=== PATIENT | male | born 1935 | race Caucasian/White ===

== ENCOUNTER 2016-07-30 11:47 | Inpatient (IN) ==
[2016-07-30] MEDS ORDERED: Aspirin 81 MG TAB.CHEW PO ONE (11:56)
[2016-07-30] MEDS ORDERED: *HR* Ticagrelor 90 MG TABLET PO ONE (11:56)
--- NOTE | 2016-07-30 12:01 | Emergency Department Note ---
START Narrative - START START: I examined this patient and my medical decision-making was reviewed with the STRETCHER OPERATOR/PA/Advanced Practice Nurse/Resident Physician. I agree with the documented findings, disposition and treatment plan as described except to the extent set forth below. ED attending note: Patient seen with emergency medicine resident Dr. Lobo. Please see a copy of his note for details of the H&P, evaluation, management and disposition of this patient. We independently had [id number] contact with the patient Briefly: A 1-year-old male presents with family for indigestion and chest discomfort since 8 AM this morning he thought it was "indigestion". No prior history of coronary artery disease or myocardial infarction. Patient was placed direct bed from the lobby into the bed and bed #6 had an emergent EKG which was read by myself as acute myocardial infarction with ST elevation of 3 mm in 23 and aVF consistent with inferior wall infarction. The resident contacted the interventional is Dr. Mayen patient is being started on study protocol will be taken to the catheter lab. We have provided 30 minutes critical care service for this patient Field Underwriter on standby.
--- NOTE | 2016-07-30 12:02 | Emergency Department Note ---
Disposition Clinical Impression: NSTEMI (non-ST elevated myocardial infarction) Disposition: Home, Self-Care Condition: Good Referrals: Alexa Ramirez MD [Primary Care Provider] - Time of Disposition: 14:10 General Adult HPI - General Stated complaint: chest pain Time Seen by Provider: 07/30/16 11:52 Source: patient Limitations: no limitations Nursing Notes Reviewed: Yes Vital Signs Reviewed: Yes - History of Present Illness HPI Narrative: Patient complaining of a chest pain radiates across his chest started 8:00 this morning. Associate with shortness of breath. No nausea no radiation to his jaw or arm. No previous history of any kind of heart problems. Is a diabetic. His take aspirin everyday. Pain Scale: 5 - Related Data Home Medications Medication Instructions Recorded Confirmed GlipiZIDE XL (24 HR) [Glucotrol XL] 12/18/15 12/18/15 Levothyroxine [Synthroid] 88 mcg PO 12/18/15 Losartan Potassium [Cozaar] 50 mg PO DAILY 12/18/15 12/18/15 Pramipexole [Mirapex] 0.25 mg PO 12/18/15 Simvastatin [Zocor] 20 mg PO 12/18/15 Aspirin Enteric Coated [Aspirin EC] 81 mg PO DAILY 07/30/16 07/30/16 Omeprazole [PriLOSEC] 20 mg PO DAILY 07/30/16 07/30/16 Oxybutynin [Ditropan] 5 mg PO BID 07/30/16 07/30/16 Allergies Allergy/AdvReac Type Severity Reaction Status Date / Time No Known Allergies Allergy Verified 12/18/15 10:46 All systems ED: reviewed and negative except as stated. Constitutional: Denies: fever, chills ENT ED: Denies: congestion Cardiovascular: Reports: chest pain (Across the center of his chest. No radiation.). Denies: palpitations, dyspnea on exertion, syncope Respiratory: Denies: cough, dyspnea Gastrointestinal: Denies: abdominal pain, nausea, vomiting, diarrhea, hematemesis, melena, hematochezia Genitourinary: Denies: urgency, dysuria, frequency, hematuria Musculoskeletal: Denies: back pain, neck pain Integumentary: Denies: rash Neurological: Denies: headache, weakness Past Medical History - Past Medical History Medical history: Reports: diabetes Psychiatric history: Reports: no psych history - Social History Smoking Status: Never smoker Smokeless Tobacco Status: No Alcohol use: Reports: none Drug use: Reports: none Physical Exam - General Limitations: no limitations General appearance: alert, in no apparent distress - Head Head exam: atraumatic, normocephalic, normal inspection - Eye Eye exam: Present: normal appearance, PERRL, EOMI. Absent: scleral icterus - ENT ENT exam: normal exam, normal oropharynx, mucous membranes moist - Neck Neck exam: Present: normal inspection, full ROM, trachea midline. Absent: lymphadenopathy - Chest Chest inspection: Present: normal inspection, symmetric chest wall rise - Respiratory Respiratory exam: Present: normal lung sounds bilaterally. Absent: respiratory distress - Cardiovascular Cardiovascular exam: Present: regular rate, normal rhythm, normal heart sounds - Abdominal Exam Abdominal exam: Present: soft, Non-Tender, normal bowel sounds - Extremities Exam Extremities exam: Present: normal inspection, full ROM, normal capillary refill. Absent: tenderness, pedal edema - Back Exam Back exam: Present: normal inspection, full ROM. Absent: tenderness, CVA tenderness (R), CVA tenderness (L) - Neurological Exam Neurological exam: Present: alert, oriented X3 - Psychiatric Psychiatric exam: Present: normal affect, normal mood - Skin Skin exam: Present: warm, dry, intact, normal color Course Course Narrative: Well-appearing male patient presents to emergency room in with a 5 hour history of chest pain. He said he developed indigestion. He states it radiates across his chest. Does not go to his jaw or his arm. Does have associated shortness of breath with no nausea or vomiting. Lung sounds are clear heart tones are normal. Abdomen is soft and nontender. He has no swelling or edema to his extremities. He is mentating appropriately. He has no history of any heart problems. He does have a history of diabetes. EKG shows a elevation in II, III , and F. This is consistent with an inferior wall SC. We have contacted the cardiac interventionalest. He will be going emergently to the Credit Department Manager. - Reevaluation(s) Reevaluation #1: Dr. Mayen reviewed the patient's EKG and requested a new EKG. There is no ST elevation on the new EKG. He states still give the Brilinita but we do not need to take him for an emergent catheter. Time: 12:15 Reevaluation #2: Patient is almost pain-free at this time. He is +[address] Mayen advises that the patient should be admitted to the floor and they will be consult it. He does have an elevated troponin but no ST elevation at this time. He does have an increased creatinine. He has a baseline increase creatinine however this is higher than normal. His troponin has never been this high. Patient is agreeable to admission. Time: 13:05 - Consultations Consultation #1: STEMI. ST elevation in 23 aVF. Otherwise, sinus rhythm. Time: 12:00 Consultation #2: Dr. Rodriguez accepted patient in stable condition. Time: 13:39 Vital Signs Temperature 97.5 F L 07/30/16 11:49 Pulse Rate 65 07/30/16 11:49 Respiratory Rate 16 07/30/16 11:49 Blood Pressure 185/95 07/30/16 11:49 O2 Sat by Pulse Oximetry 97 07/30/16 11:49 Temperature 97.5 F L 07/30/16 11:49 Pulse Rate 55 07/30/16 13:00 Respiratory Rate 16 07/30/16 13:00 Blood Pressure 155/88 07/30/16 13:00 O2 Sat by Pulse Oximetry 98 07/30/16 13:00 Oxygen Delivery Oxygen Delivery Room Air Medical Decision Making - Medical Records Medical records reviewed: Yes I reviewed the patient's medical records. - Lab Data Lab results reviewed: Yes I reviewed the patient's lab results. Result diagrams: 07/30/16 11:56 07/30/16 11:56 Lab Results 07/30/16 07/30/16 07/30/16 Range/Units 11:56 11:56 11:56 WBC 9.2 (4.3-11.1) K/mcL RBC 3.24 L (4.19-5.50) M/mcL Hgb 10.4 L (12.9-16.9) g/dL Hct 31.4 L (37.5-50.1) % MCV 96.9 (83.0-100.0) fL MCH 32.1 (28.0-33.3) pg MCHC 33.1 (31.6-35.5) g/dL RDW 12.9 (11.5-14.5) % Plt Count 252 (140-400) K/mcL MPV 9.8 (9.4-12.4) fL Immature Gran % 0.3 (0-4) % Seg Neutrophils % 55.1 % Lymphocytes % 32.0 % Monocytes % 8.3 % Eosinophils % 3.9 % Basophils % 0.4 % Neutrophils # 5.1 (1.6-8.9) K/mcL Lymphocytes # 2.9 (0.6-4.6) K/mcL Monocytes # 0.8 (0.0-1.3) K/mcL Eosinophils # 0.4 (0.0-0.6) K/mcL Basophils # 0.0 (0.0-0.2) K/mcL PT 11.3 (9.4-12.1) Seconds INR 1.0 APTT 29.2 (26.0-36.0) Seconds Sodium 140 (136-145) mEq/L Potassium 4.9 H (3.5-4.5) mEq/L Chloride 109 (98-109) mEq/L Carbon Dioxide 19 (19-29) mEq/L BUN 53 H (8-26) mg/dL Creatinine 3.63 H (0.72-1.25) mg/dL Est GFR ( Amer) 20 L (> 60) Est GFR (Non-Af Amer) 16 L (> 60) BUN/Creatinine Ratio 15 (6-26) Glucose 95 (70-99) mg/dL Calculated Osmolality 304 H (280-300) Calcium 9.0 (8.6-10.8) mg/dL Magnesium 1.9 (1.6-2.6) mg/dL Troponin I (0-0.03) ng/mL 07/30/16 Range/Units 11:56 WBC (4.3-11.1) K/mcL RBC (4.19-5.50) M/mcL Hgb (12.9-16.9) g/dL Hct (37.5-50.1) % MCV (83.0-100.0) fL MCH (28.0-33.3) pg MCHC (31.6-35.5) g/dL RDW (11.5-14.5) % Plt Count (140-400) K/mcL MPV (9.4-12.4) fL Immature Gran % (0-4) % Seg Neutrophils % % Lymphocytes % % Monocytes % % Eosinophils % % Basophils % % Neutrophils # (1.6-8.9) K/mcL Lymphocytes # (0.6-4.6) K/mcL Monocytes # (0.0-1.3) K/mcL Eosinophils # (0.0-0.6) K/mcL Basophils # (0.0-0.2) K/mcL PT (9.4-12.1) Seconds INR APTT (26.0-36.0) Seconds Sodium (136-145) mEq/L Potassium (3.5-4.5) mEq/L Chloride (98-109) mEq/L Carbon Dioxide (19-29) mEq/L BUN (8-26) mg/dL Creatinine (0.72-1.25) mg/dL Est GFR ( Amer) (> 60) Est GFR (Non-Af Amer) (> 60) BUN/Creatinine Ratio (6-26) Glucose (70-99) mg/dL Calculated Osmolality (280-300) Calcium (8.6-10.8) mg/dL Magnesium (1.6-2.6) mg/dL Troponin I 0.16 H* (0-0.03) ng/mL - Radiology Data Radiology results reviewed: Yes I reviewed the patient's radiology results. Chest X-Ray 07/30/16 11:56 IMPRESSION: 1. Stable chest x-ray with no active pulmonary disease. D/ / Crow Whitney MD / Crow Whitney MD Interpreting Provider: Crow Whitney MD - EKG Data EKG #1 EKG attestation: Yes I reviewed and interpreted this EKG. EKG results narrative: Normal sinus rhythm at a rate of 62. ST elevation noted in 23 and aVF. This is consistent with a STEMI. SC interval is 160. QRS duration is 98. QT is 392. QTC 397. This was not present on previous EKG dated 09/13/2014. EKG #2 EKG attestation: Yes I reviewed and interpreted this EKG. EKG results narrative: 12:40 Normal sinus rhythm at a rate of 54. SC interval is 138. Respiration is 90. QT is 412. QTC is 397. ST elevation or depression noted on this EKG.
[2016-07-30 12:05] LABS: Basophils % 0.4 %; Eosinophils # 0.4 K/mcL (0.0-0.6); Eosinophils % 3.9 %; Hematocrit 31.4 % (37.5-50.1); Hemoglobin 10.4 g/dL (12.9-16.9); Immature Granulocytes % 0.3 % (0-4); Lymphocytes # 2.9 K/mcL (0.6-4.6); Mean Corpuscular HGB Conc 33.1 g/dL (31.6-35.5); Mean Corpuscular Hemoglobin 32.1 pg (28.0-33.3); Mean Corpuscular Volume 96.9 fL (83.0-100.0); Mean Platelet Volume 9.8 fL (9.4-12.4); Monocytes # 0.8 K/mcL (0.0-1.3); Monocytes % 8.3 %; Neutrophils # 5.1 K/mcL (1.6-8.9); Platelet Count 252 K/mcL (140-400); Red Blood Count 3.24 M/mcL (4.19-5.50); Red Cell Distribution Width 12.9 % (11.5-14.5); Segmented Neutrophils % 55.1 %
[2016-07-30 12:10] LABS: Prothrombin Time 11.3 Seconds (9.4-12.1)
[2016-07-30 12:13] LABS: Activated Partial Thrombo Time 29.2 Seconds (26.0-36.0)
[2016-07-30] MEDS: Nitroglycerin 25 MG/250 ML INFUS..BTL IVC SCH (12:14)
[2016-07-30 12:17] LABS: Magnesium 1.9 mg/dL (1.6-2.6); Potassium 4.9 mEq/L (3.5-4.5)
[2016-07-30] MEDS ORDERED: diazePAM 5 MG TABLET PO ONE (13:54)
[2016-07-30] MEDS ORDERED: *HR* Heparin 5,000 UNIT/ML VIAL IVP PRN ×2 (14:13)
[2016-07-30] MEDS ORDERED: *HR* Heparin 5,000 UNIT/ML VIAL IVP ONE (14:13)
[2016-07-30] MEDS ORDERED: Sodium Bicarbonate 50 MEQ/50 ML VIAL IVP ONE (14:14)
[2016-07-30] MEDS ORDERED: Calcium Gluconate 1,000 MG in D5% in Water 100 ML IVPB ONE (14:15)
[2016-07-30] MEDS ORDERED: *HR* Heparin 5,000 UNIT/ML VIAL ONE (14:26)
[2016-07-30] MEDS ORDERED: Heparin 25,000 UNIT/500 ML D5W 25,000 UNIT/500 ML MLS IVC ONE (14:27)
[2016-07-30] MEDS ORDERED: Naloxone 0.4 MG/ML INJ IVP PRN (14:28)
[2016-07-30] MEDS: Heparin 25,000 UNIT/500 ML D5W 25,000 UNIT/500 ML MLS IVC SCH ×2 (14:29→16:46)
--- NOTE | 2016-07-30 14:31 | Event Note ---
Date of Encounter: 07/30/16 Time of Encounter: 14:24 Patient seen and examined withpractitioner. 81-year-old man with diabetes mellitus type 2 diagnosed 4 years ago, CKD presents to emergency room today with anginal chest pain while he was working in his barn. This is the 1st time he experiences chest pain. Chest pain al retrosternal radiating to both arms lasted for 3 hours to he arrived to emergency room. Initial electrocardiogram shows ST segment elevation in the inferior leads with ST segment in lead 3 more than lead 2 suggestive of probable RCA occlusion. He was started on nitroglycerin drip With near resolution of this chest pain. Repeat EKG showed resolution of ST segment elevation. During my interview patient stated that pain is almost gone. He rated his pain as 1-2/10. He is hemodynamically stable blood pressure 130 E. 150 systolic. Heart rate 60s. He has been given loading those of Berlinta. Aspirin 300 mg. He will be started on heparin drip. No room for beta dogn. Echocardiogram. Close monitoring. He will need an angiogram. Discussed with him the risk of contrast nephropathy. He will be started on fluids as well as mucomyst to decrease risk of contrast nephropathy. No clinical signs of heart failure. No witnessed ventricular arrhythmias. Patient is full code.
[2016-07-30] MEDS ORDERED: Dextrose Gel 15 GM PO PRN ×2 (14:43)
[2016-07-30] MEDS ORDERED: *HR* Dextrose 50 % in Water (Syg) 50 ML SYRINGE IVP PRN (14:43)
[2016-07-30] MEDS ORDERED: D5% in Water 1,000 ML IVC PRN (14:43)
--- NOTE | 2016-07-30 14:53 | Internal Med History&Physical ---
Date of Encounter: 07/30/16 Time of Encounter: 14:46 Assessment and Plan (1) NSTEMI (non-ST elevated myocardial infarction) Current visit: Yes Status: Acute Patient with crushing chest pain relieved by nitro and aspirin. Initial EKG revealed ST elevations in leads II, III and avF. Repeat EKG after resolution of chest pain showed resolution of ST elevations. Troponin 0.16. Cardiology consulted and feels this is NSTEMI, and not indicated for emergent cath. Patient given loading dose of Brilinta, 325mg aspirin Nitro drip and heparin drip started serial troponins for trend continuous groundwater monitoring technician echocardiogram ordered Cardiology consulted and possible cath tomorrow. NPO at midnight for possible cath tomorrow. (2) Acute kidney injury superimposed on chronic kidney disease Current visit: Yes Status: Acute Creatinine of 3.63 up from previous baseline of 2.56. Strong possibility patient will go to catheter lab for his NSTEMI, we will hydrate with fluids 0.9 normal saline at 100 mL per hour, as well as give Mucomyst for renal protection. Hold losartan. Avoid NSAIDs and Nephrotoxins Recheck chemistry in the morning. (3) Hyperkalemia Current visit: Yes Status: Acute Potassium of 4.9 Sodium bicarb and calcium gluconate ordered recheck chemistry tomorrow. (4) Type 2 diabetes mellitus Current visit: Yes Status: Acute Check Hgb A1c Hold glipizide check blood sugars ACHS sliding scale correction dose ACHS hypoglycemic protocol. Qualifiers: Diabetes mellitus complication status: without complication Diabetes mellitus intermediate designer insulin use: without intermediate designer use Qualified Code(s): E11.9 - Type 2 diabetes mellitus without complications (5) Hypertension Current visit: Yes Status: Acute Hold Losartan due to MARIA ANTONIA. Patient on Nitro drip for his NSTEMI. Qualifiers: Hypertension type: essential hypertension Qualified Code(s): I10 - Essential (primary) hypertension (6) DVT prophylaxis Current visit: Yes Status: Acute Anti-embolic stockings Heparin drip. Internal Medicine - H&P: HPI Chief complaint: chest pain Admitted From: Emergency Dept Plans for Post Hospital Care: Home History of present illness: Mr. Harkins is a 81 year old male with hypertension, hyperlipidemia, CAD stage IV, type 2 diabetes, acid reflux who presented to the emergency department today with complaints of chest pain. Patient reports he had an onset of chest pain this morning while he was working in his barn at approximately 8 AM. He describes the pain as crushing, severe, constant, radiating down bilateral arms. He denies any lightheadedness, headache, palpitations, shortness of breath, sweating he denies any nausea, vomiting, diarrhea. Evaluation in the emergency department included an EKG which demonstrated ST elevations in leads II, III, and aVF, cardiology was consulted, patient was given aspirin, nitroglycerin, and chest pain nearly resolved. Repeat EKG showed resolution of ST elevations. Cardiology did not feel emergent catheter was indicated. Evaluation also showed MARIA ANTONIA on his CAD is elevated creatinine of 3.63 from previous value of 2.56. He is mildly hyperkalemic with potassium of 4.9. On exam, patient was alert and oriented, in no acute distress, reporting that his pain was resolved. Had regular rate and rhythm, lungs are clear bilaterally to auscultation, no lower extremity edema. Past Med Surg Social Fam HX - Past Medical History Medical history: diabetes, GERD, hyperlipidemia, hypertension, renal disease, thyroid disease Psychiatric history: no psych history - Past Surgical History Surgical History: no surgical history - Social History Smoking Status: Former smoker Smokeless Tobacco Status: No Alcohol use: none Drug use: none - Family History Mother Living Status: Age at : 86 Hx Family Endocrine Disorder: Yes (diabetes) Father Living Status: Age at : 92 Internal Medicine - H&P: Meds GlipiZIDE XL (24 HR) [Glucotrol XL] 5 mg PO QAM 12/18/15 [History] Levothyroxine [Synthroid] 88 mcg PO QAM 12/18/15 [History] Losartan Potassium [Cozaar] 50 mg PO DAILY 12/18/15 [History] Pramipexole [Mirapex] 0.25 mg PO HS 12/18/15 [History] Simvastatin [Zocor] 20 mg PO HS 12/18/15 [History] Aspirin Enteric Coated [Aspirin EC] 81 mg PO DAILY 07/30/16 [History] Omeprazole [PriLOSEC] 20 mg PO DAILY 07/30/16 [History] Oxybutynin [Ditropan] 5 mg PO BID 07/30/16 [History] Allergies No Known Allergies Allergy (Verified 12/18/15 10:46) All Systems PM: A 10-system review of systems was performed and is negative for pertinent findings except as documented above in the HPI. - Constitutional Constitutional: no chills, no fever(s), no night sweats - EENT Eyes: no change in vision, no discharge, no pain, no photophobia Ears: no ear discharge, no ear pain, no tinnitus Nose, mouth and throat: no dysphagia, no nasal discharge, no neck pain, no sore throat - Cardiovascular Cardiovascular ROS IM: chest pain, no diaphoresis, no dyspnea, no lightheadedness, no palpitations, no syncope - Respiratory Respiratory: no cough, no dyspnea, no wheezing, no excessive phlegm production - Gastrointestinal Gastrointestinal: no abdominal pain, no diarrhea, no hematemesis, no hematochezia, no melena, no nausea, no vomiting - Musculoskeletal Musculoskeletal ROS IM: no numbness, no tingling - Integumentary Integumentary IM: no rash, no unusual bruising - Neurological Neurological ROS: no confusion, no convulsions, no focal weakness, no numbness, no tingling, no tremor(s) - Hematologic/Lymphatic Hematologic/Lymphatic: no easy bruising - Constitutional Vitals: Temp Pulse Resp BP Pulse Ox 97.5 F L 54 16 171/83 98 07/30/16 11:49 07/30/16 14:30 07/30/16 14:30 07/30/16 14:30 07/30/16 14:30 General appearance: Present: A&O X 3, pleasant, no acute distress - Head Head exam: Present: atraumatic, normocephalic - Eye Eye exam: Present: PERRL, conjuntiva pink, sclera anicteric Pupils: Present: PERRL - Neck Neck exam general surgery: Present: supple, trachea midline. Absent: lymphadenopathy - Respiratory Respiratory exam: Present: CTAB. Absent: accessory muscle use, rales, rhonchi, wheezes - Cardiovascular Cardiovascular exam: Present: RRR, +S1, +S2. Absent: diastolic murmur, gallop, rubs, systolic murmur - GI/Abdominal GI/Abdominal exam: Present: normal bowel sounds, soft, no peritoneal signs. Absent: distended, tenderness - Extremities Exam Extremities exam: Present: warm, radial pulses palpable and symetrical. Absent : calf tenderness, cyanotic, pedal edema - Neurological Exam Neurological exam: Present: CN II-XII intact, oriented X3, no focal deficits. Absent: facial droop, speech deficit - Skin Skin exam: Present: dry, intact Internal Med - H&P Results - Labs CBC & Chem 7: 07/30/16 11:56 07/30/16 11:56 Labs: All Lab Results (24 Hours) 07/30/16 07/30/16 07/30/16 Range/Units 11:56 11:56 11:56 WBC 9.2 (4.3-11.1) K/mcL RBC 3.24 L (4.19-5.50) M/mcL Hgb 10.4 L (12.9-16.9) g/dL Hct 31.4 L (37.5-50.1) % MCV 96.9 (83.0-100.0) fL MCH 32.1 (28.0-33.3) pg MCHC 33.1 (31.6-35.5) g/dL RDW 12.9 (11.5-14.5) % Plt Count 252 (140-400) K/mcL MPV 9.8 (9.4-12.4) fL Immature Gran % 0.3 (0-4) % Seg Neutrophils % 55.1 % Lymphocytes % 32.0 % Monocytes % 8.3 % Eosinophils % 3.9 % Basophils % 0.4 % Neutrophils # 5.1 (1.6-8.9) K/mcL Lymphocytes # 2.9 (0.6-4.6) K/mcL Monocytes # 0.8 (0.0-1.3) K/mcL Eosinophils # 0.4 (0.0-0.6) K/mcL Basophils # 0.0 (0.0-0.2) K/mcL PT 11.3 (9.4-12.1) Seconds INR 1.0 APTT 29.2 (26.0-36.0) Seconds Sodium 140 (136-145) mEq/L Potassium 4.9 H (3.5-4.5) mEq/L Chloride 109 (98-109) mEq/L Carbon Dioxide 19 (19-29) mEq/L BUN 53 H (8-26) mg/dL Creatinine 3.63 H (0.72-1.25) mg/dL Est GFR ( Amer) 20 L (> 60) Est GFR (Non-Af Amer) 16 L (> 60) BUN/Creatinine Ratio 15 (6-26) Glucose 95 (70-99) mg/dL Calculated Osmolality 304 H (280-300) Calcium 9.0 (8.6-10.8) mg/dL Magnesium 1.9 (1.6-2.6) mg/dL Troponin I (0-0.03) ng/mL 07/30/16 Range/Units 11:56 WBC (4.3-11.1) K/mcL RBC (4.19-5.50) M/mcL Hgb (12.9-16.9) g/dL Hct (37.5-50.1) % MCV (83.0-100.0) fL MCH (28.0-33.3) pg MCHC (31.6-35.5) g/dL RDW (11.5-14.5) % Plt Count (140-400) K/mcL MPV (9.4-12.4) fL Immature Gran % (0-4) % Seg Neutrophils % % Lymphocytes % % Monocytes % % Eosinophils % % Basophils % % Neutrophils # (1.6-8.9) K/mcL Lymphocytes # (0.6-4.6) K/mcL Monocytes # (0.0-1.3) K/mcL Eosinophils # (0.0-0.6) K/mcL Basophils # (0.0-0.2) K/mcL PT (9.4-12.1) Seconds INR APTT (26.0-36.0) Seconds Sodium (136-145) mEq/L Potassium (3.5-4.5) mEq/L Chloride (98-109) mEq/L Carbon Dioxide (19-29) mEq/L BUN (8-26) mg/dL Creatinine (0.72-1.25) mg/dL Est GFR ( Amer) (> 60) Est GFR (Non-Af Amer) (> 60) BUN/Creatinine Ratio (6-26) Glucose (70-99) mg/dL Calculated Osmolality (280-300) Calcium (8.6-10.8) mg/dL Magnesium (1.6-2.6) mg/dL Troponin I 0.16 H* (0-0.03) ng/mL - Diagnostic Studies Chest x-ray Additional comments: Chest X-Ray 07/30/16 11:56 IMPRESSION: 1. Stable chest x-ray with no active pulmonary disease. D/ / Crow Whitney MD / Crow Whitney MD Interpreting Provider: Crow Whitney MD
--- NOTE | 2016-07-30 15:29 | Cardiology Consult Note ---
Date of Encounter: 07/30/16 Time of Encounter: 15:26 Assessment and Plan (1) NSTEMI (non-ST elevated myocardial infarction) Current Visit: Yes Status: Acute Patient with crushing chest pain relieved by nitro and aspirin. Initial EKG had significant artifact. Reviewed with Dr. Henderson, does not think there was true ST elevation. Repeat EKG after resolution of chest pain showed no ST elevation. Troponin 0.16 in setting of MARIA ANTONIA on CKD Stage IV. Type I vs. Type II NSTEMI. Recommend trending enzymes for total of 3. Patient given loading dose of Brilinta, 325mg aspirin, nitro and heparin gtt. Start daily ASA, Statin, BB. Pt remains chest pain free. Check echo to evaluate structure and function. EF in 2013 was 55-60%. Multiple risk factors for coronary disease including HTN, HLD, Age, prior tobacco abuse, DM. Discussed at length with pt and family regarding medical management vs. invasive evaluation with LHC, which could lead to contrast induced nephropathy requiring dialysis. Pt would like to avoid dialysis if able. Await echo results for further recommendations. If pt has recurrent chest pain not relieved by medication or if EF is reduced on echo, will need to consider LHC. Pt and family are aware and agreeable to current plan of medical management until echo results. (2) Acute kidney injury superimposed on chronic kidney disease Current Visit: Yes Status: Acute MARIA ANTONIA on CKD Stage IV. Baseline creatinine appears to be 2-3. Current creatinine is 3.63 Avoid nephrotoxic drugs. Recommend gentle hydration with IV fluids. Management per primary team. (3) Hypertension Current Visit: Yes Status: Acute Hold Losartan due to MARIA ANTONIA. Start BB. Continue to monitor. Qualifiers: Hypertension type: essential hypertension Qualified Code(s): I10 - Essential (primary) hypertension Discussion w patient/family: The assessment and plan as outlined above was discussed with the patient and/or family members who expressed understanding and agreement. All questions were answered. Thank you for involving us in the care of your patient. Please call with any questions. I will discuss all the above with Dr. Henderson and make changes as necessary. History of Present Illness Consult date: 07/30/16 Requesting physician: Sheela Lundy Consult reason: Chest pain, elevated troponin, EKG changes Chief complaint: Chest pain History of present illness: Mr. Harkins is a 81 year old male with PMH of HTN, HLD, CKD stage IV, type 2 DM , GERD that presented to the ED today with complaints of chest pain. Patient reports he had onset of chest pain this morning while he was working in his barn at approximately 8 AM. He describes the pain as crushing, severe, constant , radiating down bilateral arms. He denies any lightheadedness, headache, palpitations, shortness of breath, sweating nausea, vomiting, diarrhea. Evaluation in the emergency department included an EKG which demonstrated what was interpreted as ST elevations in leads II, III, and aVF. However, significant artifact makes it difficult to interpret. Pt was given aspirin, nitroglycerin, and chest pain nearly resolved. Repeat EKG showed no ST elevations. Labs revealed MARIA ANTONIA on CKD, creatinine of 3.63 from previous value of 2.56. Pt currently denies any chest pain, is on heparin and nitro gtt. Pt denies any hx of CAD. Echo in 2013 showed preserved EF. Initial troponin 0.16. Past Med Surg Social Fam HX - Past Medical History Medical history: diabetes, GERD, hyperlipidemia, hypertension, renal disease, thyroid disease Psychiatric history: no psych history - Past Surgical History Surgical History: no surgical history - Social History Smoking Status: Former smoker Smokeless Tobacco Status: No Alcohol use: none Drug use: none - Family History Mother Living Status: Age at : 86 Hx Family Endocrine Disorder: Yes (diabetes) Father Living Status: Age at : 92 Medications and Allergies GlipiZIDE XL (24 HR) [Glucotrol XL] 5 mg PO QAM 12/18/15 [History] Levothyroxine [Synthroid] 88 mcg PO QAM 12/18/15 [History] Losartan Potassium [Cozaar] 50 mg PO DAILY 12/18/15 [History] Pramipexole [Mirapex] 0.25 mg PO HS 12/18/15 [History] Simvastatin [Zocor] 20 mg PO HS 12/18/15 [History] Aspirin Enteric Coated [Aspirin EC] 81 mg PO DAILY 07/30/16 [History] Omeprazole [PriLOSEC] 20 mg PO DAILY 07/30/16 [History] Oxybutynin [Ditropan] 5 mg PO BID 07/30/16 [History] Allergies No Known Allergies Allergy (Verified 12/18/15 10:46) All Systems Review: A 10-system review of systems was performed and is negative for pertinent findings except as documented above in the HPI. - Cardiovascular Cardiovascular: as per HPI, chest pain at rest, chest pain with exertion, radiating jaw, neck or arm pain Physical Examination Vital Signs Temp Pulse Resp BP Pulse Ox 07/30/16 14:43 16 142/98 07/30/16 14:30 54 16 171/83 98 07/30/16 14:15 61 16 163/91 98 07/30/16 14:00 56 16 152/86 98 07/30/16 13:00 55 16 155/88 98 07/30/16 12:45 54 16 160/75 98 07/30/16 12:30 56 16 158/82 98 07/30/16 12:15 60 16 149/94 97 07/30/16 12:00 60 16 163/77 96 07/30/16 11:49 97.5 F L 65 16 185/95 97 Intake and Output 07/29/16 07/30/16 07/30/16 23:59 07:59 15:59 Other: Weight 81.647 kg Patient Weight 07/30/16 23:59 Weight 81.647 kg General: Conversant, No Apparent Distress HEENT: Atraumatic, Normocephaly, Mucus Membranes Moist Neck: No JVD, Normal carotid pulses Cardiac: Reg Rate and Rhythm, Normal S1 and S2, No Murmur Lungs: Normal Breath Sounds, No Wheeze, Rales, Rhonchi Neuro: Alert and responsive, No focal deficits noted Abdomen: Soft, Non-Tender Skin: No rashes noted on visualized skin Musculoskeletal: No Chest Wall Tenderness Extremities: No Clubbing, No Cyanosis, No Edema, Normal Pulses Results 07/30/16 11:56 07/30/16 11:56 Short CBC 07/30/16 Range/Units 11:56 WBC 9.2 (4.3-11.1) K/mcL Hgb 10.4 L (12.9-16.9) g/dL Hct 31.4 L (37.5-50.1) % Plt Count 252 (140-400) K/mcL Neutrophils # 5.1 (1.6-8.9) K/mcL BMP 07/30/16 Range/Units 11:56 Sodium 140 (136-145) mEq/L Potassium 4.9 H (3.5-4.5) mEq/L Chloride 109 (98-109) mEq/L Carbon Dioxide 19 (19-29) mEq/L BUN 53 H (8-26) mg/dL Creatinine 3.63 H (0.72-1.25) mg/dL Glucose 95 (70-99) mg/dL Calcium 9.0 (8.6-10.8) mg/dL Cardiac Enzymes 07/30/16 Range/Units 11:56 Troponin I 0.16 H* (0-0.03) ng/mL Impressions Chest X-Ray 07/30/16 11:56 IMPRESSION: 1. Stable chest x-ray with no active pulmonary disease. D/ / Crow Whitney MD / Crow Whitney MD Interpreting Provider: Crow Whitney MD Active Medications Acetylcysteine (Acetylcysteine 20%) 600 mg PO BID GUA[facility]KO Stop: 01/29/17 14:46 Dextrose/Water (Dextrose 50% (Syg)) 25 ml IVP AD PRN PRN Reason: Hypoglycemia Stop: 01/29/17 14:44 Glucagon (Glucagen) 1 mg IM ONCE PRN PRN Reason: Hypoglycemia Stop: 01/29/17 14:44 Glucose (Gluctose) 15 gm PO ONCE PRN PRN Reason: Hypoglycemia Stop: 01/29/17 14:44 Glucose (Gluctose) 30 gm PO ONCE PRN PRN Reason: Hypoglycemia Stop: 01/29/17 14:44 Heparin Sodium (Porcine) (Heparin) 4,000 unit IVP Q6HR PRN PRN Reason: SEE COMMENTS Stop: 01/29/17 14:14 Heparin Sodium (Porcine) (Heparin) 2,000 unit IVP Q6H PRN PRN Reason: SEE COMMENTS Stop: 01/29/17 14:14 Nitroglycerin (Nitroglycerin) 25 mg in 250 mls @ 3 mls/hr IVC .Q24H G[facility] PRN Reason: 5 MCG/MIN Stop: 01/29/17 12:01 Last Admin: 07/30/16 12:14 Dose: 5 mcg/min, 3 mls/hr Heparin Sodium/Dextrose (Heparin 25,000 Unit/500 Ml D5w) 25,000 unit in 500 mls @ 19.595 mls/hr IVC .Q24H GUANAKO; 12 UNIT/KG/HR PRN Reason: Protocol Stop: 01/29/17 14:31 Last Admin: 07/30/16 14:29 Dose: 12 unit/kg/hr, 19.595 mls/hr Sodium Chloride (0.9 % Sodium Chloride) 1,000 mls @ 100 mls/hr IVC .Q10H G[facility] Stop: 01/29/17 14:31 Dextrose (Dextrose 5%) 1,000 mls @ 100 mls/hr IVC .Q10H PRN PRN Reason: HYPOGLYCEMIA Stop: 01/29/17 14:44 Insulin Human Lispro (Humalog) 0 units SQ HS [facility] PRN Reason: Protocol Stop: 01/29/17 21:01 Insulin Human Lispro (Humalog) 0 units SQ TIDAC [facility] PRN Reason: Protocol Stop: 01/29/17 16:31 Levothyroxine Sodium (Synthroid) 88 mcg PO QAM [facility] Stop: 01/30/17 09:01 Naloxone HCl (Narcan) 0.4 mg IVP Q2MIN PRN PRN Reason: Opioid Reversal Stop: 01/29/17 14:29 Omeprazole (Prilosec) 20 mg PO DAILY [facility] PRN Reason: Protocol Stop: 01/30/17 09:01 Oxybutynin Chloride (Ditropan) 5 mg PO BID [facility] PRN Reason: Protocol Stop: 01/29/17 21:01 Pramipexole Dihydrochloride (Mirapex) 0.25 mg PO HS [facility] Stop: 01/29/17 21:01 Simvastatin (Zocor) 20 mg PO HS [facility] PRN Reason: Protocol Stop: 01/29/17 21:01 - Imaging and Cardiology Chest Xray: report reviewed Echo: report reviewed - EKG Interpretation EKG results cardiology: personally reviewed (Initial EKG ST elevation in leads II, III, aVF, then resolved after nitro, ASA, Brilinta.) Consult Discharge Plan - Plan Referrals: Alexa Ramirez MD [Primary Care Provider] -
[2016-07-30] MEDS: Insulin LISPRO 300 UNITS/3 ML VIAL SQ SCH ×2 (16:48→21:16)
[2016-07-30] MEDS: 0.9 % Sodium Chloride 1,000 ML IVC SCH (16:55)
[2016-07-30] MEDS: *HR* Acetylcysteine 20% 600 MG/3 ML ORAL SYRINGE PO SCH (23:29)
[2016-07-31 02:04] LABS: Basophils % 0.6 %; Eosinophils # 0.3 K/mcL (0.0-0.6); Hematocrit 27.8 % (37.5-50.1); Hemoglobin 9.2 g/dL (12.9-16.9); Immature Granulocytes % 0.3 % (0-4); Lymphocytes # 2.2 K/mcL (0.6-4.6); Lymphocytes % 31.4 %; Mean Corpuscular HGB Conc 33.1 g/dL (31.6-35.5); Mean Corpuscular Hemoglobin 31.8 pg (28.0-33.3); Mean Corpuscular Volume 96.2 fL (83.0-100.0); Mean Platelet Volume 10.3 fL (9.4-12.4); Monocytes # 0.6 K/mcL (0.0-1.3); Monocytes % 8.5 %; Neutrophils # 3.7 K/mcL (1.6-8.9); Platelet Count 240 K/mcL (140-400); Red Blood Count 2.89 M/mcL (4.19-5.50); Red Cell Distribution Width 12.9 % (11.5-14.5); Segmented Neutrophils % 54.2 %
[2016-07-31 02:18] LABS: Calcium 8.4 mg/dL (8.6-10.8); Potassium 4.1 mEq/L (3.5-4.5)
[2016-07-31] MEDS: 0.9 % Sodium Chloride 1,000 ML IVC SCH ×2 (03:32→13:15)
--- NOTE | 2016-07-31 06:26 | Electrocardiograph Report ---
[address] [address] Test Date: 2016-07-30 Pat Name: Cullen Harkins Department: 102 Room: 2A Gender: M Storage Worker: Estelle : 1935 Requested By: Tim Mayen Order Number: [id number] Reading MD: Tim Mayen MD Measurements Intervals [place] Rate: 54 P: 76 AL: 138 QRS: 2 QRSD: 90 T: 19 QT: 412 QTc: 397 Interpretive Statements SINUS BRADYCARDIA Electronically Signed On 07-31-2016 6:24:43 EDT by Tim Mayen MD
--- NOTE | 2016-07-31 06:26 | Electrocardiograph Report ---
[address] [address] Test Date: 2016-07-30 Pat Name: Cullen Harkins Department: 102 Room: 2A Gender: M Central Services Tech: sEtelle : 1935 Requested By: Tim Mayen Order Number: [id number] Reading MD: Tim Mayen MD Measurements Intervals [place] Rate: 62 P: [place]: 0 QRS: 13 QRSD: 92 T: 35 QT: 392 QTc: 396 Interpretive Statements SINUS RHYTHM Electronically Signed On 07-31-2016 6:24:34 EDT by Tim Mayen MD
[2016-07-31] MEDS: *HR* Ticagrelor 90 MG TABLET PO SCH ×2 (08:45→21:10)
[2016-07-31] MEDS: Insulin LISPRO 300 UNITS/3 ML VIAL SQ SCH ×4 (08:46→21:08)
[2016-07-31] MEDS: Isosorbide MONOnitrate (24 HR) 30 MG TAB.ER.24H PO SCH (08:46)
[2016-07-31] MEDS ORDERED: Aspirin 81 MG TAB.CHEW PO SCH (09:00)
[2016-07-31] MEDS: *HR* Acetylcysteine 20% 600 MG/3 ML ORAL SYRINGE PO SCH (09:45)
[2016-07-31] MEDS ORDERED: Ondansetron 4 MG/2 ML VIAL ONE (10:12)
[2016-07-31] MEDS: Ondansetron 4 MG/2 ML VIAL IVP PRN (10:36)
[2016-07-31] MEDS ORDERED: *HR* Morphine 2 MG/ML SYRINGE IVP PRN (10:54)
[2016-07-31] MEDS ORDERED: *HR* Morphine 2 MG/ML SYRINGE ONE (10:56)
--- NOTE | 2016-07-31 11:08 | ECHO - Doppler Report ---
Echocardiogram Name: Cullen Harkins Date of Study: 07/31/2016 Date: 1935 Ht: 69.0 in Medical Record#: [id number] Age: 81 Wt: 184.0 lb Gender: Male BSA: 1.99 Order #: [id number] Location: [facility] Room #: 2A34 Reading Physician: Violet Jj DO [employer] [employer] Aide: Lara Looney RVT Ordering Physician: Sheela Lundy CNP Primary Physician: Alexa Ramirez MD Indications: NSTEMI Impressions: LVEF 55%. Normal left ventricular size and systolic function. There is evidence of mild diastolic dysfunction of the left ventricle. Normal RV function. No significant valvular dysfunction. Lack of TR gradient to estimate RVSP. Left Ventricular Wall Motion: Rest Echo Findings The mid inferior lateral and basal inferior lateral al were not visualized. All other wall segments showed normal motion. Findings: Study Quality * Technically sub-optimal due to poor echocardiographic windows. ECG Findings * Sinus bradycardia. Aorta * Normally sized aortic root. Aortic Valve * No aortic regurgitation. * Trileaflet aortic valve. * Normal aortic valve structure. * No aortic stenosis. * Suboptimal Doppler evaluation. Mitral Valve * Normal mitral valve structure. * No mitral stenosis. * Trace mitral regurgitation. Tricuspid Valve * Tricuspid valve not well visualized. * Trace tricuspid regurgitation. * Estimated RA pressure is 8 mmHg. * No pulmonary hypertension. Pulmonic Valve * Pulmonic valve is not well visualized. * No pulmonic stenosis. * No pulmonic regurgitation. Pulmonary Artery * Pulmonary artery not well visualized. Left Ventricle * LVEF 55%. * Normal LV chamber size, wall thickness and function. * Mild left ventricular diastolic dysfunction. Left Atrium * Normal left atrial size. Right Atrium * Right atrium is not well visualized. * Dilated IVC with normal respiratory collapse. Mild increase in RA pressures. Interatrial Septum * No evidence of PFO by color Doppler. Pericardium * There is no pericardial effusion present. IVC * The IVC is dilated. * < 50% respiratory change. Right Ventricle * RV is somewhat foreshortened to determine size. However, function appears normal. History Diabetes Hypercholesteremia Myocardial Infarction 01/07/2013 a Previous Echo was performed. Measurements: BP: 145/ 57 2D Normal Values RVIDd: 2.51 cm <2.7 cm IVSd: 1.10 cm 0.6 - 1.0 cm LVIDd: 5.19 cm 3.7 - 5.6 cm LVPWd: 1.07 cm 0.6 - 1.1 cm LVIDs: 3.98 cm 1.5 - 3.6 cm AO: 3.10 cm < 4.0 cm LA: 4.10 cm 2.0 - 4.0cm %FS: 23.30 cm >25 % LA volume: 51.2 Mitral Valve Peak E:.97 m/sec Peak A:1.36 m/sec E/A Ratio:0.7 Peak E' Lat Jhoan:8.58 cm/s Peak E' Med Jhoan:7.58 cm/s E/E' Lat Ratio:11.4 E/E' Med Ratio:12.8 Tricuspid Valve TV Regurg Peak Grad: 4.00mmHg TV Regurg Peak Jhoan: 1.02m/sec Updated by Violet Jj on 07/31/2016 10:59:18 AM electronically signed on 07/31/2016 11:01:35 AM with status of Final Wall Motion Martino: 1=Normal, 2=Hypokinesis, 3=Akinesis, 4=Dyskinesis, 5=Aneurysmal, 6=Hyperkinetic, X=Not Visualized (Blank)=Missing
[2016-07-31] MEDS ORDERED: *HR* HYDROmorphone (PF) 1 MG/ML SYRINGE IVP ONE (11:36)
[2016-07-31] MEDS ORDERED: *HR* HYDROmorphone (PF) 1 MG/ML SYRINGE ONE (11:38)
[2016-07-31] MEDS: Nitroglycerin 25 MG/250 ML INFUS..BTL IVC SCH (12:09)
--- NOTE | 2016-07-31 12:43 | Cardiology Progress Note ---
Date of Encounter: 07/31/16 Time of Encounter: 12:30 Assessment and Plan (1) NSTEMI (non-ST elevated myocardial infarction) Current Visit: Yes Status: Acute Patient with crushing chest pain relieved by nitro and aspirin. Initial EKG had significant artifact. Reviewed with Dr. Henderson, does not think there was true ST elevation. Repeat EKG after resolution of chest pain showed no ST elevation. Peak troponin 3.66 with downward trend. Patient given loading dose of Brilinta, 325mg aspirin, nitro and heparin gtt. Has been chest pain free overnight. TTE: EF 55%, normal wall motion. No significant valvular dysfunction. Multiple risk factors for coronary disease including HTN, HLD, Age, prior tobacco abuse, DM. Discussed at length with pt and family regarding medical management vs. invasive evaluation with [facility], which could lead to contrast induced nephropathy requiring dialysis. Pt would like to avoid dialysis if able. Patient has been pain free and TTE demonstrated preserved LVEF, patient/family want to proceed with medical management to avoid worsening nephropathy. Will stop IV nitro gtt--started on Imdur 30. Continue asa, statin, and betablocker. Recommend Brilinta (1m-1y). Continue IV heparin gtt for 48 hours, august d/c after 1400 on 08/01/16. No further inpatient recommendations. Will arrange for outpatient follow-up with [facility]. (2) Acute kidney injury superimposed on chronic kidney disease Current Visit: Yes Status: Acute MARIA ANTONIA on CKD Stage IV. Baseline creatinine appears to be 2-3. SCr mildly improved this AM, 3.4. Ws 3.66 upon presentation. Avoid nephrotoxic drugs. Recommend gentle hydration with IV fluids. Management per primary team. (3) Hypertension Current Visit: Yes Status: Acute Hold Losartan due to MARIA ANTONIA, betablocker& nitrate started. BP stable. Qualifiers: Hypertension type: essential hypertension Qualified Code(s): I10 - Essential (primary) hypertension Discussion w patient/family: The assessment and plan as outlined above was discussed with the patient and/or family members who expressed understanding and agreement. All questions were answered. Thank you for involving us in the care of your patient. Please call with any questions. The patient was discussed and reviewed with Dr. Henderson; changes to be made accordingly. Subjective Principal diagnosis: NSTEMI, CKD IV Interval history: Seen and examined. Denies recurrent chest pain or discomfort. Reports he feels he is passing a kidney stone--states has pelvic and bilateral flank pain. Hx of kidney stones and has same symptoms. Objective Vital Signs, Last 4 Hours Temp Pulse Resp BP Pulse Ox 07/31/16 11:38 97.6 F 49 16 134/72 96 07/31/16 08:45 97.9 F 56 16 173/75 96 General: Conversant, No Apparent Distress HEENT: Atraumatic, Normocephaly, Mucus Membranes Moist Cardiac: Reg Rate and Rhythm, Normal S1 and S2 Lungs: Normal Breath Sounds Neuro: Alert and responsive Abdomen: Soft Skin: No rashes noted on visualized skin Musculoskeletal: No Chest Wall Tenderness Extremities: No Edema, Normal Pulses Results 07/31/16 01:31 07/31/16 01:31 Lab Results Active Medications Acetylcysteine (Acetylcysteine 20%) 600 mg PO BID GUANAKO Stop: 01/29/17 14:46 Last Admin: 07/31/16 09:45 Dose: 600 mg Aspirin (Aspirin Ec) 81 mg PO DAILY GUANAKO Stop: 01/31/17 09:01 Atorvastatin Calcium (Lipitor) 80 mg PO HS GUA[facility]KO Stop: 01/29/17 21:01 Last Admin: 07/30/16 21:21 Dose: 80 mg Dextrose/Water (Dextrose 50% (Syg)) 25 ml IVP AD PRN PRN Reason: Hypoglycemia Stop: 01/29/17 14:44 Glucagon (Glucagen) 1 mg IM ONCE PRN PRN Reason: Hypoglycemia Stop: 01/29/17 14:44 Glucose (Gluctose) 15 gm PO ONCE PRN PRN Reason: Hypoglycemia Stop: 01/29/17 14:44 Glucose (Gluctose) 30 gm PO ONCE PRN PRN Reason: Hypoglycemia Stop: 01/29/17 14:44 Heparin Sodium (Porcine) (Heparin) 4,000 unit IVP Q6HR PRN PRN Reason: SEE COMMENTS Stop: 01/29/17 14:14 Heparin Sodium (Porcine) (Heparin) 2,000 unit IVP Q6H PRN PRN Reason: SEE COMMENTS Stop: 01/29/17 14:14 Heparin Sodium/Dextrose (Heparin 25,000 Unit/500 Ml D5w) 25,000 unit in 500 mls @ 19.595 mls/hr IVC .Q24H GUANAKO; 12 UNIT/KG/HR PRN Reason: Protocol Stop: 01/29/17 14:31 Last Titration: 07/31/16 05:40 Dose: 11.99 unit/kg/hr, 19.595 mls/hr Sodium Chloride (0.9 % Sodium Chloride) 1,000 mls @ 100 mls/hr IVC .Q10H GUANAKO Stop: 01/29/17 14:31 Last Admin: 07/31/16 03:32 Dose: 100 mls/hr Dextrose (Dextrose 5%) 1,000 mls @ 100 mls/hr IVC .Q10H PRN PRN Reason: HYPOGLYCEMIA Stop: 01/29/17 14:44 Insulin Human Lispro (Humalog) 0 units SQ HS [facility] PRN Reason: Protocol Stop: 01/29/17 21:01 Last Admin: 07/30/16 21:16 Dose: Not Given Insulin Human Lispro (Humalog) 0 units SQ TIDAC [facility] PRN Reason: Protocol Stop: 01/29/17 16:31 Last Admin: 07/31/16 12:06 Dose: Not Given Isosorbide Mononitrate (Imdur) 30 mg PO DAILY [facility] Stop: 01/30/17 09:01 Last Admin: 07/31/16 08:46 Dose: 30 mg Levothyroxine Sodium (Synthroid) 88 mcg PO DAILY@0630 [facility] Stop: 01/31/17 06:31 Metoprolol Tartrate (Lopressor) 25 mg PO BID [facility] Stop: 01/29/17 21:01 Last Admin: 07/31/16 08:45 Dose: 25 mg Morphine Sulfate (Morphine Sulfate) 2 mg IVP Q4HR PRN PRN Reason: Severe Pain Stop: 01/30/17 10:55 Naloxone HCl (Narcan) 0.4 mg IVP Q2MIN PRN PRN Reason: Opioid Reversal Stop: 01/29/17 14:29 Omeprazole (Prilosec) 20 mg PO DAILY [facility] PRN Reason: Protocol Stop: 01/30/17 09:01 Last Admin: 07/31/16 08:46 Dose: 20 mg Ondansetron HCl (Zofran) 4 mg IVP Q6HR PRN; Protocol PRN Reason: Nausea Stop: 01/30/17 10:08 Last Admin: 07/31/16 10:36 Dose: 4 mg Oxybutynin Chloride (Ditropan) 5 mg PO BID [facility] PRN Reason: Protocol Stop: 01/29/17 21:01 Last Admin: 07/31/16 08:45 Dose: 5 mg Pramipexole Dihydrochloride (Mirapex) 0.25 mg PO HS [facility] Stop: 01/29/17 21:01 Last Admin: 07/30/16 21:21 Dose: Not Given Ticagrelor (Brilinta) 90 mg PO BID [facility] Stop: 01/30/17 09:01 Last Admin: 07/31/16 08:45 Dose: 90 mg - Imaging and Cardiology Echo: report reviewed Other Results: 12 hour tele: avg HR=56 SB. No significant event noted. - EKG Interpretation EKG results cardiology: personally reviewed Consult Discharge Plan - Plan Referrals: Alexa Ramirez MD [Primary Care Provider] -
[2016-07-31] MEDS ORDERED: *HR* Promethazine 25 MG/ML VIAL IVP PRN (12:51)
[2016-07-31] MEDS ORDERED: *HR* HYDROmorphone 2 MG/ML SYRINGE IVP PRN (12:52)
--- NOTE | 2016-07-31 12:55 | Internal Med Progress Note ---
Date of Encounter: 07/31/16 Time of Encounter: 12:54 - Assessment and plan (1) NSTEMI (non-ST elevated myocardial infarction) Current Visit: Yes Status: Acute Assessment and plan: Cardiology input appreciated 2D echo reviewed patient to be continued on Heparin gtt for a total of 24hours will continue ASA, Brlinta, Statin, BB started Imdur as per cardio will closely monitor chest pain resolved at this time. (2) Acute kidney injury superimposed on chronic kidney disease Current Visit: Yes Status: Acute Assessment and plan: renal function improved from previous day will continue gently IV fluid hydration f/u renal US continue to avoid nephrotoxic agents monitor renal function closely (3) Type 2 diabetes mellitus Current Visit: Yes Status: Acute Assessment and plan: BG within acceptable range continue SS insulin algorithm monitor FS and BG Qualifiers: Diabetes mellitus complication status: without complication Diabetes mellitus jail insulin use: without jail use Qualified Code(s): E11.9 - Type 2 diabetes mellitus without complications (4) Hypertension Current Visit: Yes Status: Acute Assessment and plan: BP within acceptable range continue home medications Qualifiers: Hypertension type: essential hypertension Qualified Code(s): I10 - Essential (primary) hypertension (5) DVT prophylaxis Current Visit: Yes Status: Acute Assessment and plan: Heparin SQ (6) Nephrolithiasis Current Visit: Yes Status: Acute Assessment and plan: As per patient he has reported history of nephrolithiasis will obtain renal US and continue supportive care at this time - Subjective Interval history: Patient seen and examined with present at bedside. Reports of resolution of his admitting symptoms (chest pain, shortness of breath) however has severe right back/flank pain secondary to renal stones. Reports of having history of nephrolithiasis. - Constitutional Vitals: Temp Pulse Resp BP Pulse Ox 97.6 F 49 16 134/72 96 07/31/16 11:38 07/31/16 11:38 07/31/16 11:38 07/31/16 11:38 07/31/16 11:38 General appearance: Present: A&O X 3, pleasant, no acute distress, answers questions appropriately - Head Head exam: Present: atraumatic, normocephalic - Eye Eye exam: Present: normal appearance, conjuntiva pink, sclera anicteric - Respiratory Respiratory exam: Present: CTAB. Absent: accessory muscle use, rales, rhonchi, wheezes - Cardiovascular Cardiovascular exam: Present: RRR, +S1, +S2. Absent: diastolic murmur, gallop, rubs, systolic murmur - GI/Abdominal GI/Abdominal exam: Present: normal bowel sounds, soft, no peritoneal signs. Absent: distended, tenderness - Extremities Exam Extremities exam: Present: warm, radial pulses palpable and symetrical. Absent : calf tenderness, cyanotic, pedal edema - Neurological Exam Neurological exam: Present: alert, oriented X3 - Psychiatric Psychiatric exam: Present: normal affect, normal mood Internal Medicine: Result - Labs CBC & Chem 7: 07/31/16 01:31 07/31/16 01:31 Labs: Short CBC 07/31/16 Range/Units 01:31 WBC 6.8 (4.3-11.1) K/mcL Hgb 9.2 L (12.9-16.9) g/dL Hct 27.8 L (37.5-50.1) % Plt Count 240 (140-400) K/mcL Neutrophils # 3.7 (1.6-8.9) K/mcL BMP 07/31/16 01:31 Sodium 142 Potassium 4.1 Chloride 110 H Carbon Dioxide 21 BUN 49 H Creatinine 3.46 H Glucose 105 H Calcium 8.4 L Cardiac Enzymes 07/30/16 07/31/16 07/31/16 Range/Units 17:48 01:31 08:49 Troponin I 2.00 H* 3.66 H* 3.53 H* (0-0.03) ng/mL - ABG Interpretation ABG results: PT/INR, D-dimer PT 11.3 Seconds (9.4-12.1) 07/30/16 11:56 Consult Discharge Plan - Plan Referrals: Alexa Ramirez MD [Primary Care Provider] -
--- NOTE | 2016-07-31 14:31 | Electrocardiograph Report ---
[facility] Test Date: 2016-07-30 Pat Name: Cullen Harkins Department: 102 Room: 2A34 Gender: M Iron Erector: Estelle : 1935 Requested By: Cedric Sebastian Order Number: [id number] Reading MD: Harley Oakes MD Measurements Intervals [place] Rate: 62 P: -77 MO: 160 QRS: 8 QRSD: 98 T: 55 QT: 392 QTc: 397 Interpretive Statements NORMAL SINUS RHYTHM MARKED ST ELEVATION, CONSIDER INFERIOR INJURY [MARKED ST ELEVATION W/O NORMALLY INFLECTED T WAVE IN II/aVF] ACUTE DE Electronically Signed On 07-31-2016 14:29:45 EDT by Harley Oakes MD
[2016-07-31] MEDS: Heparin 25,000 UNIT/500 ML D5W 25,000 UNIT/500 ML MLS IVC SCH (16:38)
[2016-07-31] MEDS: *HR* HYDROcodone/Acet 7.5/325 mg TABLET PO PRN (21:10)
[2016-08-01] MEDS: 0.9 % Sodium Chloride 1,000 ML IVC SCH ×2 (00:01→22:22)
[2016-08-01 04:41] LABS: Basophils % 0.4 %; Eosinophils # 0.3 K/mcL (0.0-0.6); Eosinophils % 4.3 %; Hematocrit 25.1 % (37.5-50.1); Hemoglobin 8.4 g/dL (12.9-16.9); Immature Granulocytes % 0.3 % (0-4); Lymphocytes # 2.1 K/mcL (0.6-4.6); Lymphocytes % 27.5 %; Mean Corpuscular HGB Conc 33.5 g/dL (31.6-35.5); Mean Corpuscular Hemoglobin 32.8 pg (28.0-33.3); Mean Platelet Volume 10.4 fL (9.4-12.4); Monocytes # 0.7 K/mcL (0.0-1.3); Monocytes % 8.6 %; Neutrophils # 4.5 K/mcL (1.6-8.9); Platelet Count 219 K/mcL (140-400); Red Blood Count 2.56 M/mcL (4.19-5.50); Red Cell Distribution Width 13.2 % (11.5-14.5); Segmented Neutrophils % 58.9 %
[2016-08-01 05:00] LABS: Calcium 8.2 mg/dL (8.6-10.8); Magnesium 1.4 mg/dL (1.6-2.6); Phosphorous 4.1 mg/dL (2.3-4.7); Potassium 4.3 mEq/L (3.5-4.5)
[2016-08-01] MEDS ORDERED: Magnesium Sulfate 2 GM in D5% in Water 100 ML IVPB ONE (08:03)
[2016-08-01] MEDS: Isosorbide MONOnitrate (24 HR) 30 MG TAB.ER.24H PO SCH (08:29)
[2016-08-01] MEDS: *HR* Ticagrelor 90 MG TABLET PO SCH ×2 (08:29→22:23)
[2016-08-01] MEDS: Aspirin Enteric Coated 81 MG Tablet PO SCH (08:30)
[2016-08-01] MEDS: Insulin LISPRO 300 UNITS/3 ML VIAL SQ SCH ×4 (08:32→22:25)
--- NOTE | 2016-08-01 15:12 | Nephrology Consult Note ---
Date of Encounter: 08/01/16 Time of Encounter: 15:10 Assessment and Plan (1) Acute kidney injury superimposed on chronic kidney disease Current Visit: Yes Status: Acute Patient with MARIA ANTONIA on CKD of unclear etiology, but likely related to NSTEMI. He is improving with intravenous hydration. Continue hydration through tonight and consider saline well of his IV tomorrow. Renal ultrasound is negative for obstruction, but did have post void residual. Will check urinalysis. Follow creatinine. Avoid nephrotoxic agents. Adjust medication for renal function. check vitamin D and PTH level. (2) Hypertension Current Visit: Yes Status: Acute Blood pressure is controlled. Titrate antihypertensive medication as needed. Qualifiers: Hypertension type: essential hypertension Qualified Code(s): I10 - Essential (primary) hypertension (3) Urinary retention Current Visit: Yes Status: Acute Repeat Post void residual. (4) NSTEMI (non-ST elevated myocardial infarction) Current Visit: Yes Status: Acute No further chest pain. Management per primary team and cardiology. Medical management. (5) Type 2 diabetes mellitus Current Visit: Yes Status: Acute Per primary team. Diabetic diet. Qualifiers: Diabetes mellitus complication status: without complication Diabetes mellitus truck terminal manager insulin use: without truck terminal manager use Qualified Code(s): E11.9 - Type 2 diabetes mellitus without complications (6) Anemia Current Visit: Yes Status: Acute Check iron stores, vitamin b12 and folate. Follow hemoglobin and transfuse as needed. Qualifiers: Qualified Code(s): D64.9 - Anemia, unspecified History of Present Illness - Reason for Consult Consult date: 08/01/16 Acute Kidney Injury, Chronic Kidney Disease - Chief Complaint Patient with MARIA ANTONIA on CKD - History of Present Illness Mr. Harkins is an 81 yo man with a history of CKD followed by Dr. Rubi, but he hasn't been seen for a number of years, presents for the evaluation of chest pain. History was obtained from the admission H&P and talking with the patient and his family. Patient presented with chest pain and shortness of breath. He was found to have NSTEMI and MARIA ANTONIA on CKD. He has been seen by , but has not been back to the renal clinic for a number of years. He reports he does not have a new kidney doctor. He did have a transient episode of back pain he thought was a kidney stone. He has not had a kidney stone in years. He denies hematuria. He denies any other complaint. He no longer has chest pain and his breathing is improved. Past Med Surg Social Fam HX - Past Medical History Medical history: diabetes, GERD, hyperlipidemia, hypertension, renal disease, thyroid disease Psychiatric history: no psych history - Past Surgical History Surgical History: no surgical history - Social History Smoking Status: Former smoker Smokeless Tobacco Status: No Alcohol use: none Drug use: none - Family History Mother Living Status: Age at : 86 Hx Family Endocrine Disorder: Yes (diabetes) Father Living Status: Age at : 92 Medications and Allergies GlipiZIDE XL (24 HR) [Glucotrol XL] 5 mg PO QAM 12/18/15 [History] Levothyroxine [Synthroid] 88 mcg PO QAM 12/18/15 [History] Losartan Potassium [Cozaar] 50 mg PO DAILY 12/18/15 [History] Pramipexole [Mirapex] 0.25 mg PO HS 12/18/15 [History] Simvastatin [Zocor] 20 mg PO HS 12/18/15 [History] Aspirin Enteric Coated [Aspirin EC] 81 mg PO DAILY 07/30/16 [History] Omeprazole [PriLOSEC] 20 mg PO DAILY 07/30/16 [History] Oxybutynin [Ditropan] 5 mg PO BID 07/30/16 [History] Allergies No Known Allergies Allergy (Verified 12/18/15 10:46) Review of Systems All Systems: reviewed and no additional remarkable complaints except as stated Exam - Vital Signs Vital signs: Initial Vital Signs Temp Pulse Resp BP Pulse Ox 97.5 F L 65 16 185/95 97 07/30/16 11:49 07/30/16 11:49 07/30/16 11:49 07/30/16 11:49 07/30/16 11:49 Vital Signs - Last 8 Hours Temp Pulse Resp BP Pulse Ox 08/01/16 11:18 98.4 F 55 18 122/64 93 Intake and Output 07/31/16 08/01/16 08/01/16 23:59 07:59 15:59 Intake Total 1205 / 1205 1073 / 1073 120 / 120 Output Total 350 / 350 250 / 250 Balance 855 / 855 823 / 823 120 / 120 Intake: IV Fluids 1205 / 1205 273 / 273 0.9 % Sodium Chloride 1, 1000 / 1000 000 ML @ 100 mls/hr IVC . Q10H [facility] Rx#:[id number] Heparin 25,000 UNIT/500 205 / 205 273 / 273 ML D5W 25,000 unit In 500 ml @ 12 UNIT/KG/HR 19. 595 mls/hr IVC .Q24H [facility] Rx#:[id number] Oral 0 / 0 800 / 800 120 / 120 Output: Urine 350 / 350 250 / 250 Other: Meal Breakfast Percent of Meal Consumed 50% Weight 83.7 kg Blood Glucose* 164 104 204 Patient Weight 08/01/16 23:59 Weight 83.7 kg - General Appearance General appearance: well-developed, well-nourished EENT: ATNC Neck: supple Respiratory: clear Cardiology: no edema, regular rate, regular rhythm Gastrointestinal: normoactive bowel sounds, no tenderness Integumentary: warm and dry Neurologic: alert and oriented x3 Musculoskeletal: no cyanosis Psychiatric: mood/affect appropriate Results - Lab Results 08/01/16 04:18 08/01/16 04:18 Most recent lab results Calcium 8.2 mg/dL (8.6-10.8) L 08/01/16 04:18 Phosphorus 4.1 mg/dL (2.3-4.7) 08/01/16 04:18 Magnesium 1.4 mg/dL (1.6-2.6) L 08/01/16 04:18 Consult Discharge Plan - Plan Referrals: Alexa Ramirez MD [Primary Care Provider] - (web request sent on ) Brent Henderson MD [Partnered Physician] - 08/08/16 10:15 am
--- NOTE | 2016-08-01 16:25 | Internal Med Progress Note ---
Date of Encounter: 08/01/16 Time of Encounter: 16:23 - Assessment and plan (1) NSTEMI (non-ST elevated myocardial infarction) Current Visit: Yes Status: Acute Assessment and plan: Cardiology input appreciated 2D echo reviewed Heparin drip discontinued will continue ASA, Brlinta, Statin, BB Continue Imdur as per cardio will closely monitor chest pain resolved at this time. (2) Acute kidney injury superimposed on chronic kidney disease Current Visit: Yes Status: Acute Assessment and plan: renal function improved from previous day will continue gentle IV fluid hydration Nephrology consultation appreciated continue to avoid nephrotoxic agents monitor renal function closely Likely discharge in a.m. pending improvement in renal function We will continue Flomax and oxybutynin at this time, and outpatient follow-up with urology after discharge. (3) Type 2 diabetes mellitus Current Visit: Yes Status: Acute Assessment and plan: BG within acceptable range continue SS insulin algorithm monitor FS and BG Diabetic diet Qualifiers: Diabetes mellitus complication status: without complication Diabetes mellitus long term care social worker insulin use: without care home use Qualified Code(s): E11.9 - Type 2 diabetes mellitus without complications (4) Hypertension Current Visit: Yes Status: Acute Assessment and plan: BP within acceptable range continue home medications Qualifiers: Hypertension type: essential hypertension Qualified Code(s): I10 - Essential (primary) hypertension (5) DVT prophylaxis Current Visit: Yes Status: Acute Assessment and plan: Heparin SQ (6) Nephrolithiasis Current Visit: Yes Status: Resolved Assessment and plan: As per patient he has reported history of nephrolithiasis Renal US negative for nephrolithiasis Symptoms resolved at this time (7) Hypomagnesemia Current Visit: Yes Status: Acute Assessment and plan: Mg supplemented continue to monitor electrolytes and replace as needed - Subjective Interval history: Patient seen and examined with family present at bedside. Patient is resting comfortably in chair and reports feeling significantly better compared to the previous day. Reports of improvement in his urination after initiation of Flomax this morning. Renal ultrasound showed prostatomegaly. Patient reports recently being started on oxybutynin by his PCP without any improvement in his urinary symptoms. He states the addition of Flomax seem to improve his symptoms. - Constitutional Vitals: Temp Pulse Resp BP Pulse Ox 98.4 F 53 18 124/62 95 08/01/16 15:49 08/01/16 15:49 08/01/16 15:49 08/01/16 15:49 08/01/16 15:49 General appearance: Present: A&O X 3, pleasant, no acute distress, answers questions appropriately - Head Head exam: Present: atraumatic, normocephalic - Eye Eye exam: Present: normal appearance, conjuntiva pink, sclera anicteric - Respiratory Respiratory exam: Present: CTAB. Absent: accessory muscle use, rales, rhonchi, wheezes - Cardiovascular Cardiovascular exam: Present: RRR, +S1, +S2. Absent: diastolic murmur, gallop, rubs, systolic murmur - GI/Abdominal GI/Abdominal exam: Present: normal bowel sounds, soft, no peritoneal signs. Absent: distended, tenderness - Extremities Exam Extremities exam: Present: warm, radial pulses palpable and symetrical. Absent : calf tenderness, cyanotic, pedal edema - Neurological Exam Neurological exam: Present: alert, oriented X3 - Psychiatric Psychiatric exam: Present: normal affect, normal mood Internal Medicine: Result - Labs CBC & Chem 7: 08/01/16 04:18 08/01/16 04:18 Labs: Short CBC 08/01/16 Range/Units 04:18 WBC 7.6 (4.3-11.1) K/mcL Hgb 8.4 L (12.9-16.9) g/dL Hct 25.1 L (37.5-50.1) % Plt Count 219 (140-400) K/mcL Neutrophils # 4.5 (1.6-8.9) K/mcL BMP 08/01/16 04:18 Sodium 140 Potassium 4.3 Chloride 111 H Carbon Dioxide 20 BUN 42 H Creatinine 3.28 H Glucose 90 Calcium 8.2 L - ABG Interpretation ABG results: PT/INR, D-dimer PT 11.3 Seconds (9.4-12.1) 07/30/16 11:56 - Impressions Impressions Retroperitoneum Ultrasound 07/31/16 17:30 IMPRESSION: 1. No hydronephrosis or shadowing stones. 2. Significant postvoid residual of 139 mL. 3. Prostatomegaly. D/ / 07/31/2016 18:31:25 Aisha Clarke MD / santana Interpreting Provider: Aisha Clarke MD Consult Discharge Plan - Plan Referrals: Alexa Ramirez MD [Primary Care Provider] - (web request sent on ) Brent Henderson MD [Partnered Physician] - 08/08/16 10:15 am
[2016-08-01] MEDS: *HR* Heparin 5,000 UNIT/ML VIAL SQ SCH (17:25)
[2016-08-02] MEDS: *HR* HYDROcodone/Acet 7.5/325 mg TABLET PO PRN (04:00)
[2016-08-02] MEDS: Ondansetron 4 MG/2 ML VIAL IVP PRN (04:00)
[2016-08-02] MEDS: *HR* Heparin 5,000 UNIT/ML VIAL SQ SCH (06:03)
[2016-08-02 06:24] LABS: Basophils # 0.1 K/mcL (0.0-0.2); Basophils % 0.6 %; Eosinophils # 0.4 K/mcL (0.0-0.6); Hematocrit 26.2 % (37.5-50.1); Hemoglobin 8.5 g/dL (12.9-16.9); Immature Granulocytes % 0.3 % (0-4); Lymphocytes # 1.9 K/mcL (0.6-4.6); Lymphocytes % 20.7 %; Mean Corpuscular HGB Conc 32.4 g/dL (31.6-35.5); Mean Corpuscular Hemoglobin 32.1 pg (28.0-33.3); Mean Corpuscular Volume 98.9 fL (83.0-100.0); Mean Platelet Volume 10.3 fL (9.4-12.4); Monocytes # 0.7 K/mcL (0.0-1.3); Monocytes % 7.6 %; Platelet Count 235 K/mcL (140-400); Red Blood Count 2.65 M/mcL (4.19-5.50); Red Cell Distribution Width 13.2 % (11.5-14.5); Segmented Neutrophils % 66.8 %
[2016-08-02 06:29] LABS: Bilirubin,Urine Negative (Negative); Blood,Urine Large (Negative); Clarity,Urine Cloudy (Clear); Color,Urine Yellow (Yellow); Glucose,Urine (UA) 250 mg/dL (Normal); Ketones,Urine Negative (Negative); Leukocyte Esterase,Urine Trace (Negative); Nitrite,Urine Negative (Negative); PH,Urine 6.5 pH Units (5.0-8.0); Protein,Urine 30 mg/dL (Neg-Trace); Specific Gravity,Urine 1.014 (1.010-1.025); Urobilinogen,Urine Normal (Normal)
[2016-08-02 06:32] LABS: Bacteria,Urine None Seen per hpf (None-Few); Hyaline Casts,Urine None Seen per lpf (None-Few); RBC,Urine TNTC per hpf (0-3); Squamous Epithelial Cell,Urine Few per lpf (None-Few)
[2016-08-02 06:34] LABS: Calcium 8.4 mg/dL (8.6-10.8); Magnesium 1.9 mg/dL (1.6-2.6); Potassium 4.6 mEq/L (3.5-4.5)
[2016-08-02 07:10] LABS: Folate 12.2 ng/mL (7.0-31.4)
[2016-08-02] MEDS: Insulin LISPRO 300 UNITS/3 ML VIAL SQ SCH ×2 (07:14→11:45)
[2016-08-02] MEDS: 0.9 % Sodium Chloride 1,000 ML IVC SCH (09:01)
[2016-08-02] MEDS: *HR* Ticagrelor 90 MG TABLET PO SCH (09:05)
[2016-08-02] MEDS: Aspirin Enteric Coated 81 MG Tablet PO SCH (09:05)
[2016-08-02] MEDS: Isosorbide MONOnitrate (24 HR) 30 MG TAB.ER.24H PO SCH (09:05)
--- NOTE | 2016-08-02 11:05 | Nephrology Progress Note ---
Date of Encounter: 08/02/16 Time of Encounter: 11:00 - Assessment and Plan (1) Acute kidney injury superimposed on chronic kidney disease Current Visit: Yes Status: Acute MARIA ANTONIA on CKD 3; baseline Scr is 2.5 Kidney function was improving but slightly worse today; Scr 3.37 today, was 3.28 yesterday Would recommend no discharge today, need to see which way kidney function is going to trend Continue hydration Urology has been consulted consulted (2) Hypertension Current Visit: Yes Status: Acute per primary team Qualifiers: Hypertension type: essential hypertension Qualified Code(s): I10 - Essential (primary) hypertension (3) NSTEMI (non-ST elevated myocardial infarction) Current Visit: Yes Status: Acute per cardiology team Subjective Principal diagnosis: NSTEMI, CKD IV Interval history: Patient seen and examined. and daughter at bedside. Patient states he didn't have a very good night, c/o lots of right sided pain, thinking he was passing a kidney stone. Objective - Vital Signs Vital signs: Vital Signs Temp Pulse Resp BP Pulse Ox 08/02/16 09:50 93 08/02/16 09:39 93 08/02/16 07:59 97.9 F 64 16 147/62 93 08/02/16 05:41 98.4 F 64 16 133/58 94 08/02/16 00:59 98.5 F 59 16 141/63 94 08/01/16 19:31 98.2 F 59 18 138/56 94 08/01/16 15:49 98.4 F 53 18 124/62 95 08/01/16 11:18 98.4 F 55 18 122/64 93 Intake and Output 08/01/16 08/02/16 08/02/16 23:59 07:59 15:59 Intake Total 300 / 300 30 / 30 1120 / 1120 Output Total 274 / 274 900 / 900 500 / 500 Balance -870 / -870 620 / 620 Intake: IV Fluids 1000 / 1000 0.9 % Sodium Chloride 1, 1000 / 1000 000 ML @ 100 mls/hr IVC . Q10H [facility] Rx#:[id number] Oral 300 / 300 30 / 30 120 / 120 Output: Urine 900 / 900 500 / 500 Post Void Residual 274 / 274 Other: Meal Dinner Breakfast Percent of Meal Consumed 100% 50% Weight 84.8 kg Blood Glucose* 121 127 Patient Weight 08/02/16 23:59 Weight 84.8 kg - General Appearance General appearance: Present: well-developed, well-nourished EENT: Present: ATNC, mucous membranes moist, hearing intact, vision intact Neck: Present: supple Respiratory: Present: clear Cardiology: Present: no edema, normal S1, normal S2 Gastrointestinal: Present: no tenderness, no guarding Integumentary: Present: warm and dry Neurologic: Present: alert and oriented x3 Psychiatric: Present: mood/affect appropriate, cooperative - Lab 08/02/16 05:57 08/02/16 05:57 Most recent lab results Calcium 8.4 mg/dL (8.6-10.8) L 08/02/16 05:57 Phosphorus 4.1 mg/dL (2.3-4.7) 08/01/16 04:18 Magnesium 1.9 mg/dL (1.6-2.6) 08/02/16 05:57 Urine Creatinine 53 mg/dL 08/02/16 05:58 Urine Sodium 146.0 mEq/L 08/02/16 05:58 Consult Discharge Plan - Plan Referrals: Alexa Ramirez MD [Primary Care Provider] - 08/06/16 1:45 pm () Moy Curry DO [Partnered Physician] - Brent Henderson MD [Partnered Physician] - 08/08/16 10:15 am
[2016-08-02 11:47] VITALS: BP 152/73
[2016-08-02] MEDS ORDERED: *HR* HYDROcodone/Acet 7.5/325 mg TABLET PO PRN (12:38)
--- NOTE | 2016-08-02 13:06 | Urology - Consult Note ---
Date of Encounter: 08/02/16 Time of Encounter: 13:02 - Assessment and Plan (1) Hematuria Current Visit: Yes Status: Acute Assessment and plan: 81-year-old gentleman with a history of hematuria. His urine is currently clear. No further urologic intervention is required well he is an inpatient. Upon discharge, I will obtain a noncontrast CT scan to evaluate for any kidney stones. He did have one in 2014 which shows some punctate stones. His renal ultrasound did not describe any stones. In addition, he will require a cystoscopy in the office. He was informed of all the risks of the procedure. He is willing to proceed. There doesn't appear to be any hydronephrosis. His renal insufficiency is likely a chronic source. Thank you for allowing me to participate in this patient's care. Please call a questions. Urology CN:CARLOS Consult date: 08/02/16 Reason for consult Urology: Gross Hematuria Requesting physician: Carleen Wren History of present illness: 81-year-old man was admitted for chest pain. He was seen by cardiology for possible DC. He was given heparin. Yesterday evening he developed gross hematuria. His urine was bright red. His heparin drip was stopped. Eventually his urine clears. Currently he has yellow urine. He had a renal ultrasound which shows some incomplete bladder emptying and enlargement of his prostate. There is no evidence of hydronephrosis. He has a history of chronic renal insufficiency. Past Med Surg Social Fam HX - Past Medical History Medical history: diabetes, GERD, hyperlipidemia, hypertension, renal disease, thyroid disease Psychiatric history: no psych history - Past Surgical History Surgical History: no surgical history - Social History Smoking Status: Former smoker Smokeless Tobacco Status: No Alcohol use: none Drug use: none - Family History Mother Living Status: Age at : 86 Hx Family Endocrine Disorder: Yes (diabetes) Father Living Status: Age at : 92 Medications and Allergies GlipiZIDE XL (24 HR) [Glucotrol XL] 5 mg PO QAM 12/18/15 [History] Levothyroxine [Synthroid] 88 mcg PO QAM 12/18/15 [History] Losartan Potassium [Cozaar] 50 mg PO DAILY 12/18/15 [History] Pramipexole [Mirapex] 0.25 mg PO HS 12/18/15 [History] Simvastatin [Zocor] 20 mg PO HS 12/18/15 [History] Aspirin Enteric Coated [Aspirin EC] 81 mg PO DAILY 07/30/16 [History] Omeprazole [PriLOSEC] 20 mg PO DAILY 07/30/16 [History] Oxybutynin [Ditropan] 5 mg PO BID 07/30/16 [History] Allergies No Known Allergies Allergy (Verified 12/18/15 10:46) Review of Systems - Constitutional no chills, no fever(s) - EENT Nose, mouth and throat: no dizziness - Cardiovascular no chest pain - Respiratory no dyspnea - Gastrointestinal no nausea, no vomiting - Genitourinary flank pain, hematuria - Musculoskeletal no back pain - Integumentary no erythema, no rash - Neurological no weakness - Psychiatric no suicidal ideation - Hematologic/Lymphatic no easy bleeding - Allergic/Immunologic no wheezing Exam Initial Vital Signs Temp Pulse Resp BP Pulse Ox 97.5 F L 65 16 185/95 97 07/30/16 11:49 07/30/16 11:49 07/30/16 11:49 07/30/16 11:49 07/30/16 11:49 - General physical appearance Present: well developed, well nourished, no distress - Eyes Absent: icteric - ENT Present: normal nares - Neck Present: trachea midline - Respiratory Present: normal respiratory effort - Cardiovascular Cardiovascular exam IM: RRR - Abdomen Abdomen: Present: soft Urology Results - Labs 08/02/16 05:57 08/02/16 05:57 Abnormal lab results RBC 2.65 M/mcL (4.19-5.50) L 08/02/16 05:57 Hgb 8.5 g/dL (12.9-16.9) L 08/02/16 05:57 Hct 26.2 % (37.5-50.1) L 08/02/16 05:57 APTT 64.4 Seconds (26.0-36.0) H 08/01/16 04:18 Potassium 4.6 mEq/L (3.5-4.5) H 08/02/16 05:57 Chloride 114 mEq/L (98-109) H 08/02/16 05:57 Carbon Dioxide 18 mEq/L (19-29) L 08/02/16 05:57 BUN 40 mg/dL (8-26) H 08/02/16 05:57 Creatinine 3.37 mg/dL (0.72-1.25) H 08/02/16 05:57 Est GFR ( Amer) 21 (> 60) L 08/02/16 05:57 Est GFR (Non-Af Amer) 18 (> 60) L 08/02/16 05:57 Glucose 124 mg/dL (70-99) H 08/02/16 05:57 POC Glucose 131 (58-89) H 08/02/16 11:41 Hemoglobin A1c 6.0 % (-5.6) H 07/30/16 11:56 Calcium 8.4 mg/dL (8.6-10.8) L 08/02/16 05:57 Iron 30 mcg/dL (65-175) L 08/02/16 05:57 % Saturation 13 % (20-55) L 08/02/16 05:57 Transferrin 165 mg/dL (174-364) L 08/02/16 05:57 Ferritin 302 ng/ml (22-275) H 08/02/16 05:57 Troponin I 3.53 ng/mL (0-0.03) H* 07/31/16 08:49 PTH Intact 199.1 pg/ml (8.5-72.5) H 08/02/16 05:57 Urine Clarity Cloudy (Clear) A 08/02/16 05:58 Urine Protein 30 mg/dL (Neg-Trace) H 08/02/16 05:58 Urine Glucose (UA) 250 mg/dL (Normal) H 08/02/16 05:58 Urine Blood Large (Negative) H 08/02/16 05:58 Ur Leukocyte Esterase Trace (Negative) H 08/02/16 05:58 Urine Microscopic RBC TNTC per hpf (0-3) H 08/02/16 05:58 Urine Microscopic WBC 5-15 per hpf (0-3) H 08/02/16 05:58 Ur Eosinophil Smear 6 % (None Seen) H 08/02/16 05:58 Ur Culture Indicated? YES (NO) A 08/02/16 05:58 Microalb/Creat Ratio 149 (0-30) H 08/02/16 05:58 Diabetes panel 08/02/16 Range/Units 05:57 Sodium 139 (136-145) mEq/L Potassium 4.6 H (3.5-4.5) mEq/L Chloride 114 H (98-109) mEq/L Carbon Dioxide 18 L (19-29) mEq/L BUN 40 H (8-26) mg/dL Creatinine 3.37 H (0.72-1.25) mg/dL Glucose 124 H (70-99) mg/dL Calcium 8.4 L (8.6-10.8) mg/dL Calcium panel 08/02/16 Range/Units 05:57 Calcium 8.4 L (8.6-10.8) mg/dL Pituitary panel 08/02/16 Range/Units 05:57 Sodium 139 (136-145) mEq/L Potassium 4.6 H (3.5-4.5) mEq/L Chloride 114 H (98-109) mEq/L Carbon Dioxide 18 L (19-29) mEq/L BUN 40 H (8-26) mg/dL Creatinine 3.37 H (0.72-1.25) mg/dL Glucose 124 H (70-99) mg/dL Calcium 8.4 L (8.6-10.8) mg/dL Adrenal panel 08/02/16 Range/Units 05:57 Sodium 139 (136-145) mEq/L Potassium 4.6 H (3.5-4.5) mEq/L Chloride 114 H (98-109) mEq/L Carbon Dioxide 18 L (19-29) mEq/L BUN 40 H (8-26) mg/dL Creatinine 3.37 H (0.72-1.25) mg/dL Glucose 124 H (70-99) mg/dL Calcium 8.4 L (8.6-10.8) mg/dL All other labs normal. - Imaging US - abdomen: report reviewed, image reviewed US - pelvic: report reviewed, image reviewed Consult Discharge Plan - Plan Instructions: Myocardial Infarction (DC), Acute Kidney Injury (DC), Anemia (GEN ) Referrals: Alexa Ramirez MD [Primary Care Provider] - 08/06/16 1:45 pm () Brent Henderson MD [Partnered Physician] - 08/08/16 10:15 am Buck Rubi MD [Partnered Physician] - (Office stated they will call patient will follow up appointment.)
--- NOTE | 2016-08-02 13:26 | Discharge Summary ---
Date of Encounter: 08/02/16 Time of Encounter: 09:45 - Discharge Diagnosis (1) NSTEMI (non-ST elevated myocardial infarction) Priority: Primary Status: Acute (2) Acute kidney injury superimposed on chronic kidney disease Priority: Secondary Status: Acute (3) Type 2 diabetes mellitus Priority: Secondary Status: Chronic Qualifiers: Diabetes mellitus complication status: without complication Diabetes mellitus long term care administrator insulin use: without snf use Qualified Code(s): E11.9 - Type 2 diabetes mellitus without complications (4) Hypertension Priority: Secondary Status: Chronic Qualifiers: Hypertension type: essential hypertension Qualified Code(s): I10 - Essential (primary) hypertension (5) DVT prophylaxis Priority: Secondary Status: Acute (6) Nephrolithiasis Priority: Secondary Status: Resolved (7) Hypomagnesemia Priority: Secondary Status: Acute - Discharge Medications Prescriptions: Atorvastatin [Lipitor] 80 mg PO HS #30 tablet Isosorbide MONOnitrate (24 HR) [Imdur] 30 mg PO DAILY #30 tab.er.24h Metoprolol [Lopressor] 25 mg PO BID #60 tablet Ticagrelor [Brilinta] 90 mg PO BID #60 tablet Home Medications: GlipiZIDE XL (24 HR) [Glucotrol XL] 5 mg PO QAM 12/18/15 [History] Levothyroxine [Synthroid] 88 mcg PO QAM 12/18/15 [History] Pramipexole [Mirapex] 0.25 mg PO HS 12/18/15 [History] Aspirin Enteric Coated [Aspirin EC] 81 mg PO DAILY 07/30/16 [History] Omeprazole [PriLOSEC] 20 mg PO DAILY 07/30/16 [History] Oxybutynin [Ditropan] 5 mg PO BID 07/30/16 [History] Atorvastatin [Lipitor] 80 mg PO HS #30 tablet 08/02/16 [Rx] Isosorbide MONOnitrate (24 HR) [Imdur] 30 mg PO DAILY #30 tab.er.24h 08/02/16 [ Rx] Metoprolol [Lopressor] 25 mg PO BID #60 tablet 08/02/16 [Rx] Ticagrelor [Brilinta] 90 mg PO BID #60 tablet 08/02/16 [Rx] Allergies/Adverse Reactions: Allergies No Known Allergies Allergy (Verified 12/18/15 10:46) Procedures/tests Complete & Pending: Procedures Performed prior 72 hours Category Date Time Status Retroperitoneal Ultrasound - Complete [US Exams 07/31/16 17:30 Completed retroperitoneal comp] [US] Stat ECG 12 lead ECG [ECG] Routine Y 07/30/16 12:40 Completed Date of admission: 07/30/16 14:57 Primary care physician: Alexa Lal Consults: 08/01/16 08:04 Consult to Nephrology [CONS] Routine Consulting Provider: [facility] [place]/FLAVIA/SHIMA/CANDIS Reason for Consult: acute on chronic kidney injury Call Completed: Yes 08/02/16 09:38 Consult to Urology [CONS] Routine Consulting Provider: [facility] [place] Reason for Consult: hematuria, prostamegaly Call Completed: Yes Discharging clinician: Carleen Wren Anticipated date of discharge: 08/02/16 - Patient Status Disposition: Home, Self-Care Condition: Good Functional capacity at discharge: independent ambulation Overall status at discharge: patient is back to baseline - Discharge Instructions Instructions: Myocardial Infarction (DC), Acute Kidney Injury (DC), Anemia (GEN ) Follow Up With: Alexa Ramirez MD [Primary Care Provider] - 08/06/16 1:45 pm () Brent Henderson MD [Partnered Physician] - 08/08/16 10:15 am Buck Rubi MD [Partnered Physician] - (Office stated they will call patient will follow up appointment.) Forms: ED Satisfaction Letter Additional Instructions: Please follow up with your primary care physician within five days after your discharge from the hospital. Please follow up with your line supply, vice chair, and urologist within one to two weeks after discharge from the hospital. Metoprolol, Imdur, Atorvastatin have been added to your home medications. Please take these medications as prescribed. Your home medication of Simvastatin and Losartan have been discontinued. Please inform your primary care physician of this change. Please closely monitor your blood pressure at home and take these readings with you for your follow up with your Primary care physician appointment. continue daily aspirin 81mg once a day. Resume all other home medications as prescribed by your primary care physician. Please seek medical help immediately if you have recurrence of chest pain or shortness of breath. - Diet and Activity Activity: resume usual activities as tolerated Diet: diabetic diet, low salt diet Hospital course: Mr. Harkins is a 81 year old male with PMH of hypertension, hyperlipidemia, CAD stage IV, type 2 diabetes, acid reflux who was admitted for management of NSTEMI and MARIA ANTONIA on CKD. Patient was started on heparin gtt and cardiology was consulted. Given patient's renal function, LHC was not recommended and medical therapy was started. Patient was started on BB, Imdur, high dose statin, and continuation of home dose of ASA. Patients' home dose of Losartan was placed on hold and nephrology was consulted given his worsening renal function. Patient's hospital course was complicated by hematuria and noted findings of prostamegaly on renal US for which urology was consulted. Patient's hematuria was likely secondary to heparin gtt and outpatient follow up with urology for a cystoscopy was recommended. At this time patient's hematuria has resolved, H&H within acceptable range, chest pain free, and renal function stablized. It appears that this may be patient's new baseline for his renal function. He is hemodynamically stable and will be discharged to home with follow up with PCP, nephrology, cardiology, and urology. Patient and family demonstrate understanding of his diagnosis and agree with the discharge care and plan. - Time Spent with Patient Total time spent providing and/or coordinating discharge services: Greater than 30 minutes - Constitutional Vitals: Temp Pulse Resp BP Pulse Ox 97.6 F 55 16 152/73 94 08/02/16 11:46 08/02/16 11:46 08/02/16 11:46 08/02/16 11:46 08/02/16 11:46 General appearance: Present: A&O X 3, pleasant, no acute distress, answers questions appropriately - Head Head exam: Present: atraumatic, normocephalic - Eye Eye exam: Present: normal appearance, conjuntiva pink, sclera anicteric - Respiratory Respiratory exam: Present: CTAB. Absent: accessory muscle use, rales, rhonchi, wheezes - Cardiovascular Cardiovascular exam: Present: RRR, +S1, +S2. Absent: diastolic murmur, gallop, rubs, systolic murmur - GI/Abdominal GI/Abdominal exam: Present: normal bowel sounds, soft, no peritoneal signs. Absent: distended, tenderness - Extremities Exam Extremities exam: Present: warm, radial pulses palpable and symetrical. Absent : calf tenderness, cyanotic, pedal edema - Neurological Exam Neurological exam: Present: alert, oriented X3 - Psychiatric Psychiatric exam: Present: normal affect, normal mood
[2016-08-05 01:40] LABS: Alpha 2 Globulin (PEP) 0.84 g/dL (0.48-1.05); Beta Globulin (PEP) 1.26 g/dL (0.48-1.10)
[2016-08-06 08:17] LABS: Immunoglobulin G 536 mg/dL (768-1632)
[2016-08-06 08:18] LABS: IFE Reflexed IFE Done; Immunoglobulin A 718 mg/dL (68-408); Immunoglobulin M 15 mg/dL (35-263)
== END 2016-08-02 15:00 | disposition home or self-care (01) | DRG 281 ==
LOC: ICNU 11:47 → EMEROO 11:47 → ICNU 13:14 → 2ANU 13:50 → SUATTDRO 14:57 → 2ANU 15:04
PROVIDERS: ADMIT Nurse Practitioner Family; ATTEND Internal Medicine